=== PATIENT | female | born 1960 | race American Indian/Alaskan Native ===

== ENCOUNTER 2017-04-16 07:58 | Emergency (ER) | payer OTHER ==
[2017-04-16 09:57] VITALS: BP 136/93
[2017-04-16] MEDS ORDERED: PERCOCET 5/325 PO ONE (11:49)
[2017-04-16] MEDS ORDERED: DECADRON IM STA (11:49)
--- NOTE | 2017-04-16 12:14 | XRay Report ---
LEFT KNEE RADIOGRAPHS INDICATION: Pain, swelling left knee. COMPARISON: None similar. FINDINGS: AP, lateral and oblique left knee radiographs demonstrate intact articulation, though with mild to moderate medial and patellofemoral compartment narrowing. Mild degenerative spurring also noted. Minimal suprapatellar effusion possible. CONCLUSION: Left knee osteoarthrosis, as described. Thank you for the opportunity to participate in this patient's care.
--- NOTE | 2017-04-16 23:23 | Emergency Department Report ---
Entered by STEPHAN CHACKO, acting as scribe for MELANY SOTELO PA. ED Lower Extremity HPI - General Chief Complaint: Extremity Injury, Lower Stated Complaint: LFT KNEE PAIN Time Seen by Provider: 04/16/17 11:09 Source: patient, family Mode of arrival: Wheelchair Limitations: Physical Limitation - History of Present Illness Initial Comments: 56 y/o female, PMHx of arthritis, Asthma, GERD, and stomach ulcers, c/o left knee pain beginning 5 days ago, aggravated by weight bearing, no alleviating factors, aching in quality, 10/10 in severity. Associated symptom include left knee swelling, but she denies injury, numbness, tingling, fever, chills, nausea , and vomiting. Patient states she went to work Friday and Friday but was unable to bear weight today. She has had similar past symptoms in her right knee and has saw an orthopedic physician where she received a cortisone shot to the right knee. She was also told she would need an MRI and possible right knee replacement. Patient denies receiving an X-ray of her left knee. She reports using an pedro wrap and taking Tramadol for her current symptoms with no relief. She sees a PCP to manage her pain. Allergic to Ibuprofen. MD Complaint: other (left knee pain) -: days(s) (5) Injury: Knee: Left (anterior pain and swelling) Type of Injury: unknown, other (arthritis) Place: other (unknown) Severity: mild Severity scale (0 -10): 10 Improves With: other (ulytram) Worsens With: weight bearing Context: other (arthritis) Other Symptoms: other (swelling, denies numbness or tingling) Associated Symptoms: swelling, able to partially bear weight, ambulatory. denies: numbness, tingling Treatments Prior to Arrival: bandage, other (tramadol) - Related Data Previous Rx's Medication Instructions Recorded Last Taken Type traMADol [Ultram 50 MG tab] 50 mg PO Q6HR PRN #15 tablet 04/12/16 04/16/17 09: 00 Rx 50mg Allergies Allergy/AdvReac Type Severity Reaction Status Date / Time ibuprofen [From Motrin] AdvReac Bleeding Verified 04/16/17 08:26 ED Review of Systems Comment: All other systems reviewed and negative Constitutional: denies: chills, fever Respiratory: denies: cough, shortness of breath Cardiovascular: denies: chest pain Gastrointestinal: denies: abdominal pain, nausea, vomiting, diarrhea Musculoskeletal: joint swelling, arthralgia. denies: back pain Skin: denies: rash, lesions Neurological: denies: headache, numbness ED Past Medical Hx - Past Medical History Previous Medical History?: Yes Hx GERD: Yes Hx Arthritis: Yes (OSTEOARTHRITIS) Hx Asthma: Yes Additional medical history: bleeding stomach ulcers - Surgical History Past Surgical History?: Yes Hx Cholecystectomy: Yes Additional Surgical History: x (3). Rt knee surgery. SINUS SURGERY - Family History Family history: hypertension - Social History Smoking Status: Former Smoker Substance Use Type: Prescribed - Medications Home Medications: Home Medications Medication Instructions Recorded Confirmed Last Taken Type traMADol [Ultram 50 MG tab] 50 mg PO Q6HR PRN #15 tablet 04/12/16 04/16/1704/16 09:00 Rx 50mg ED Physical Exam - General Limitations: Physical Limitation (limping) General appearance: alert, in no apparent distress - Head Head exam: Present: atraumatic, normocephalic, normal inspection - Eye Eye exam: Present: normal appearance, PERRL, EOMI. Absent: scleral icterus, conjunctival injection Pupils: Present: normal accommodation - ENT ENT exam: Present: normal exam, normal orophraynx, mucous membranes moist, TM's normal bilaterally, normal external ear exam - Neck Neck exam: Present: normal inspection, full ROM. Absent: tenderness, lymphadenopathy - Respiratory Respiratory exam: Present: normal lung sounds bilaterally. Absent: respiratory distress, wheezes, rales, rhonchi, accessory muscle use - Cardiovascular Cardiovascular Exam: Present: regular rate, normal rhythm, normal heart sounds, gallop - GI/Abdominal GI/Abdominal exam: Present: soft, normal bowel sounds, other (negative CVA tenderness bilaterally. Obese). Absent: distended, tenderness, guarding, rebound, rigid - Extremities Exam Extremities exam: Present: normal inspection, full ROM, tenderness, normal capillary refill, joint swelling. Absent: calf tenderness - Expanded Lower Extremity Exam Left Hip exam: Present: normal inspection, full ROM, pelvic stability. Absent: tenderness, swelling, abrasion, laceration, ecchymosis, deformity, crepidus, dislocation, erythema, external rotation, internal rotation, shortening Upper Leg exam: Present: normal inspection, full ROM. Absent: tenderness, swelling, abrasion, laceration, ecchymosis, deformity, crepidus, dislocation, erythema Knee exam: Present: full ROM (pain with left knee flexion and extension), tenderness (left anterior knee), swelling, effusion, full knee extension. Absent: abrasion, laceration, ecchymosis, deformity, crepidus, dislocation, erythema, pain w/ pronation/supination, posterior draw sign, pain/laxity with valgus, pain/laxity with varus Lower Leg exam: Present: normal inspection, full ROM. Absent: tenderness, swelling, abrasion, laceration, ecchymosis, deformity, crepidus, dislocation, erythema, palpable cord, David's sign Ankle exam: Present: normal inspection, full ROM. Absent: tenderness, swelling , abrasion, laceration, ecchymosis, deformity, crepidus, dislocation, erythema Foot/Toe exam: Present: normal inspection, full ROM. Absent: tenderness, swelling, abrasion, laceration, ecchymosis, deformity, crepidus, dislocation, erythema, amputation, puncture wound, foreign body, calcaneal tenderness, tenderness at base of 5th metatarsal, nail avulsion, subungual hematoma Neuro vascular tendon exam: Present: no vascular compromise. Absent: pulse deficit, abnormal cap refill, motor deficit, sensory deficit, tendon deficit, extremity cold to touch, pallor, abnormal 2-point discrimination, decreased fine /light touch, foot drop, peroneal nerve deficit, significant pain with passive ROM of distal joint Gait: Positive: observed and limited by pain - Back Exam Back exam: Present: normal inspection, full ROM. Absent: tenderness, CVA tenderness (R), CVA tenderness (L) - Neurological Exam Neurological exam: Present: alert, oriented X3, abnormal gait (abnormal gait due to limping from left knee pain). Absent: motor sensory deficit - Psychiatric Psychiatric exam: Present: normal affect, normal mood - Skin Skin exam: Present: warm, dry, intact, normal color. Absent: rash ED Course Vital Signs 04/16/17 08:29 Temperature 98.3 F Pulse Rate 77 Respiratory 18 Rate Blood Pressure 136/93 O2 Sat by Pulse 100 Oximetry - Reevaluation(s) Reevaluation #1: 04/16/17 12:59 Patient received Decadron 10 mg IM and Percocet 2 tablets in emergency room for left knee pain. - Orthopedic Splinting/Casting Injury #1 Side: left Lower Extremity Injury Location: knee Lower Extremity Immobilizer: Pedro wrap Other Orthopedic Equipment: crutches (she requested) ED Lower Extremity MDM - Radiology Data Radiology results: report reviewed xry lt knee : lt Knee Osteoarthritis with possible minimal effusion - Medical Decision Making ED course:Lt knee pain and swelling XRay: Osteoarthritis with possible minimal effusion Meds: percocet 2 tabs Po and decadron 10 mg im in ED. Continue with Ultram Follow up with your Orthopedic doctor Follow up with you PCP See procedure note for Knee splinting ED Disposition Clinical Impression: Knee pain, left Qualifiers: Chronicity: acute Qualified Code(s): M25.562 - Pain in left knee Osteoarthritis Qualifiers: Osteoarthritis location: knee Osteoarthritis type: unspecified Laterality: left Qualified Code(s): M17.12 - Unilateral primary osteoarthritis, left knee Disposition: DISCHARGED TO HOME OR SELFCARE Is pt being admited?: No Does the pt Need Aspirin: No Condition: Stable Instructions: Osteoarthritis (ED), Knee Pain (ED), Arthralgia (ED), Knee Exercises (GEN) Additional Instructions: Follow up with your orthopedic doctor Rest Take medication as prescribed Referrals: HILLARY BERNARDO [Other] - 2-3 Days Forms: Work/School Release Form(ED) This documentation as recorded by the RICCO cruz MATHEW,accurately reflects the service I personally performed and the decisions made by ,MELANY SOTELO PA.
== END 2017-04-16 13:17 | disposition home or self-care (01) ==
LOC: ED 07:58
DX: M17.12 Unilateral primary osteoarthritis, left knee (principal); K21.9 Gastro-esophageal reflux disease without esophagitis; J45.909 Unspecified asthma, uncomplicated; Z87.891 Personal history of nicotine dependence
CPT/HCPCS: 73562; 96372; 99283; J1100

== ENCOUNTER 2018-01-28 09:24 | Emergency (ER) | payer OTHER ==
[2018-01-28 09:55] VITALS: BP 127/91
[2018-01-28] MEDS ORDERED: DELTASONE PO ONE (12:02)
[2018-01-28] MEDS ORDERED: TORADOL IM ONE (12:02)
--- NOTE | 2018-01-28 12:06 | Emergency Department Report ---
HPI - General Chief Complaint: Shoulder Injury Time Seen by Provider: 01/28/18 11:42 - HPI HPI: This is a 57-year-old female who presents complaining of right shoulder pain that started in December. Patient states she went to a primary care physician on December 19 and was referred to orthopedic doctor which she saw and was given some medication. Patient states she was then later referred to physical therapist. Patient states that pain is still not resolved and she still have some pain on her right shoulder. Patient denies any trauma, injury or falls to the shoulder. Patient states that she just lifted her shoulder to do her hair when she felt the aching sensation pain in her shoulder. Patient states she does do a lot of [employer] in [place] with her hand at work. ED Past Medical Hx - Past Medical History Hx GERD: Yes Hx Arthritis: Yes (OSTEOARTHRITIS) Hx Asthma: Yes Additional medical history: bleeding stomach ulcers - Surgical History Hx Cholecystectomy: Yes Additional Surgical History: x (3). Rt knee surgery - Social History Smoking Status: Never Smoker - Medications Home Medications: Home Medications Medication Instructions Recorded Confirmed Last Taken Type Acetaminophen/Codeine [Tylenol 1 tab PO Q6H PRN #12 tab 01/28/18 Unknown Rx /Codeine # 3 tab] traMADol [Ultram 50 MG tab] 50 mg PO Q6HR PRN #15 tablet 01/28/18 Unknown Rx ED Review of Systems ROS: Stated complaint: RIGHT SHOULDER AND ARM INJURY Other details as noted in HPI Constitutional: denies: chills, fever Eyes: denies: eye pain, eye discharge, vision change ENT: denies: ear pain, throat pain Respiratory: denies: cough, shortness of breath, wheezing Cardiovascular: denies: chest pain, palpitations Endocrine: no symptoms reported Gastrointestinal: denies: abdominal pain, nausea, diarrhea Genitourinary: denies: urgency, dysuria, discharge Musculoskeletal: denies: back pain, joint swelling, arthralgia Skin: denies: rash, lesions Neurological: denies: headache, weakness, paresthesias Psychiatric: denies: anxiety, depression Hematological/Lymphatic: denies: easy bleeding, easy bruising Physical Exam - Physical Exam Vital Signs: Vital Signs 01/28/18 09:51 Temperature 98.4 F Pulse Rate 79 Respiratory 16 Rate Blood Pressure 127/91 O2 Sat by Pulse 98 Oximetry Physical Exam: GENERAL: Alert and oriented x3, no apparent distress, Normal Gait, atraumatic. HEAD: Head is normocephalic and a-traumatic. NECK: Supple. Non edematous, No lymphadenopathy or thyromegaly. No C-spine tenderness LUNGS: Symetrical with respiration, No wheezing, no rales or crackles, CTAB. HEART: S1, S2 present, regular rate and rhythm without murmur, no rubs, no gallops. Non tender to palpation EXTREMITIES/MUSCULOSKELETAL: No cyanosis, clubbing, rash, lesions or edema. Full ROM on upper extremities bilaterally. UE/LE Pulses 2+ bilaterally. LE and UE 5+ strength bilaterally, no swelling of the shoulder joint. No erythema. Mild tenderness to palpation of the anterior aspect of the shoulder. NEUROLOGIC: The patient is cooperative with no focal neurologic deficits. Normal speech. Normal sensation in bilateral upper and lower extremities, No loss of sensation, . SKIN: Warm and dry, No lesions, No ulceration or induration present. ED Course Vital Signs 01/28/18 09:51 Temperature 98.4 F Pulse Rate 79 Respiratory 16 Rate Blood Pressure 127/91 O2 Sat by Pulse 98 Oximetry ED Medical Decision Making - Medical Decision Making 57-year-old female presents to ED with myalgia/tendinitis of the shoulder ED course: Patient received Toradol and prednisone in ED. Vital signs are normal patient is in no acute distress Discussed with patient follow-up with primary care physician. I discussed with the patient given another referral for orthopedics if she can get a second opinion if she does not follow up with [facility] Discussed the patient and take medications as prescribed. Patient has no neurological deficit. Patient is alert and oriented 3 and understands all instructions given. Discussed drowsiness effect of Ultram and Tylenol. Not to take medication at the same time. - Differential Diagnosis tendinitis, rotator cuff injury, shoulder strain, osteoarthritis Critical care attestation.: If time is entered above; I have spent that time in minutes in the direct care of this critically ill patient, excluding procedure time. ED Disposition Clinical Impression: Tendinitis Right shoulder strain Qualifiers: Encounter type: initial encounter Qualified Code(s): S46.911A - Strain of unspecified muscle, fascia and tendon at shoulder and upper arm level, right arm , initial encounter Disposition: TO HOME OR SELFCARE Is pt being admited?: No Does the pt Need Aspirin: No Condition: Stable Instructions: Rotator Cuff Injury (ED), Shoulder Sprain (ED), Arthralgia (ED), Tendinitis (ED) Additional Instructions: Make sure to follow up with the primary care physician as discussed. Take all your medications as you've been prescribed. Follow-up with orthopedic doctor If you have any worsening symptoms or develop new symptoms please return to ED immediately. Prescriptions: Acetaminophen/Codeine [Tylenol /Codeine # 3 tab] 1 tab PO Q6H PRN #12 tab PRN Reason: Pain traMADol [Ultram 50 MG tab] 50 mg PO Q6HR PRN #15 tablet PRN Reason: Pain Referrals: PRIMARY CARE,MD [Primary Care Provider] - 3-5 Days Forms: Accompanied Note, Work/School Release Form(ED) Time of Disposition: 12:15
== END 2018-01-28 13:06 | disposition home or self-care (01) ==
LOC: ED 09:24
DX: S46.911A Strain of unspecified muscle, fascia and tendon at shoulder and upper arm level, right arm, initial encounter (principal); J45.909 Unspecified asthma, uncomplicated; M19.90 Unspecified osteoarthritis, unspecified site; K21.9 Gastro-esophageal reflux disease without esophagitis; X58.XXXA Exposure to other specified factors, initial encounter; Y93.89 Activity, other specified; Y92.89 Other specified places as the place of occurrence of the external cause; Y99.8 Other external cause status
CPT/HCPCS: 96372; 99282; J1885; J7512